=== PATIENT | female | born 2000 | race Caucasian/White ===

== ENCOUNTER 2024-09-16 18:49 | Emergency (ER) | payer OTHER, SELFPAY ==
--- NOTE | ~2024-09-16 | XR_ITS ---
CLINICAL HISTORY: SOB 1 view chest x-ray Comparison: None Findings: No consolidation or effusion. Normal size heart. No acute fracture. IMPRESSION: 1. No acute findings. This document has been electronically signed by: Dash Lozano MD on 09/16/2024 19:39:07
[2024-09-16 18:59] VITALS: BP 127/92; PULSE 73; RESP 24; TEMP 35.7; O2SAT 95; BMI 27.4
--- NOTE | 2024-09-16 18:59 | ECG_ITS ---
Test Reason : SOB Blood Pressure : */* mmHG Vent. Rate : 69 BPM Atrial Rate : * BPM P-R Int : * ms QRS Dur : 80 ms QT Int : 380 ms P-R-T Axes : * 55 66 degrees QTcB Int : 407 ms Atrial fibrillation Abnormal ECG No previous ECGs available Referred By: Jake Contreras Electronically Signed By: Shaq Panda
--- NOTE | 2024-09-16 19:02 | ED.GENADULT ---
HPI - General Adult General Chief complaint: Dyspnea Stated complaint: severe sob/just started to medication Time Seen by Provider: 09/16/24 22:28 History of Present Illness HPI narrative: Patient seen by and note written by him Related Data Previous Rx's ?Medication ?Instructions ?Recorded albuterol sulfate 90 mcg/actuation 1 inh inhalation Q4-6H PRN 09/16/24 breath activated powder inhaler shortness of breath #1 ea Allergies Allergy/AdvReac Type Severity Reaction Status Date / Time azithromycin Allergy Rash Verified 09/16/24 19:01 Penicillins [PCN] Allergy Rash Verified 09/16/24 19:01 [facility] Social History Social History Advance Directives: No Advance Directives Information Provided: No Do you have a plan to hurt others: No Plan Physical Exam ED Vital Signs: Vital Signs - 24 hr 09/16/24 18:59 09/16/24 19:27 09/16/24 23:07 Temperature 96.2 F L 97.8 F Pulse Rate 73 84 60 Respiratory Rate 24 H 20 16 Blood Pressure 127/92 H 115/64 Pulse Oximetry 95 99 Oxygen Delivery Method Room Air Room Air BMI result Body Mass Index 27.4 Course Course Course Narrative: RME: 24 yold female with pmh of anxiety, asthma and POTS presents to the ED for shortness of breath, wheezing and feelin anxious. Patient states symptoms started 20 minutes ago thinks maybe due to anxiety. Patient is unsure if it is due due new propanolol she started last night for POTS. Patient states she only took 1 propranolol last night and had no symptoms. Patient denies ever having any lip swelling, tongue swelling, drooling, rash, or sensation of throat closing. Physical exam negative for any rash, lip swelling, tongue swelling, uvula swelling. Lungs positive for profuse wheezing. Patient is brought in for ED bronchodilator treatment. Labs EKG ordered. Benadryl prednisone ordered. Medications Administered Discontinued Medications Generic Name Dose Route Start Last Admin Trade Name Freq PRN Reason Stop Dose Admin Albuterol Sulfate 2.5 mg 09/16/24 19:22 09/16/24 19:29 Albuterol Sulfate (0.083%) 2.5 Mg/3 Ml Vial.Neb INHALE 09/16/24 19:23 2.5 mg ONCE ONE Administration Diphenhydramine HCl 50 mg 09/16/24 19:01 09/16/24 19:35 Diphenhydramine Hcl 25 Mg Capsule PO 09/16/24 19:02 50 mg ONCE ONE Administration Prednisone 40 mg 09/16/24 19:02 09/16/24 19:36 Prednisone 20 Mg Tablet PO 09/16/24 19:03 40 mg ONCE ONE Administration Medical Decision Making Medical Decision Making [facility] Narrative: Pleasant 24-year-old female with recent diagnosis of POTS syndrome. She has been on propranolol just started taking this and had what appears to be significant anxiety attack after taking. Not bradycardic or ill or toxic previous evaluating provider felt there was wheezing. Mild associated chest tightness with the episode that has completely resolved. No PE history no personal cardiac history. Patient looks well and reassuring on examination Lab Data [facility] Lab Attestation statement: I reviewed the patient's lab results. 09/16/24 19:12 09/16/24 19:12 Labs: Lab Results 09/16/24 Range/Units 19:12 WBC 7.3 (4.8-10.8) X10*3/uL RBC 4.67 (4.20-5.50) X10*6/uL Hgb 12.8 (12.0-16.0) g/dl Hct 38.3 (37.0-47.0) % MCV 82.0 (80.0-98.0) fL MCH 27.4 (27.0-33.0) pg MCHC 33.4 (31.0-35.0) g/dl RDW 14.1 (11.0-16.0) % Plt Count 266 (160-400) X10*3/uL MPV 9.2 L (9.4-12.3) fL Immature Gran % (Auto) 0.1 (0.0-0.4) % Neut % (Auto) 55.4 (45-73) % Lymph % (Auto) 32.9 (20-40) % [place] % (Auto) 6.0 (2-11) % Eos % (Auto) 4.6 H (0-4) % Baso % (Auto) 1.0 (0-2) % Lymph # (Auto) 2.4 (1.2-4.9) X10*3/uL [place] # (Auto) 0.4 (0.1-1.2) X10*3/uL Eos # (Auto) 0.3 (0.0-0.4) X10*3/uL Baso # (Auto) 0.1 (0.0-0.2) X10*3/uL Abs Immat Gran (auto) 0.01 (0.00-0.03) X10*3/uL Absolute Neuts (auto) 4.1 (2.0-8.3) x10*3/uL Absolute Nucleated RBC 0.000 (0.0-0.012) X10*3/uL Nucleated RBC % (auto) 0.0 (0.0-0.2) /100WBC Sodium 140 (135-145) mmol/L Potassium 4.3 (3.3-5.1) mmol/L Chloride 108 (96-108) mmol/L Carbon Dioxide 24 (22-29) mmol/L Anion Gap 12 (12-20) BUN 11 (9-16) mg/dL Creatinine 0.79 (0.5-1.4) mg/dL Estim Creat Clear Calc 122.0 Estimated GFR > 60 Random Glucose 105 (60-115) mg/dL Calcium 9.2 (8.4-10.2) mg/dL Total Bilirubin 0.3 (0.0-1.0) mg/dL AST 18 (5-31) U/L ALT 11 (0-31) U/L Alkaline Phosphatase 66 (39-117) U/L Troponin I High Sens < 2.7 (<3.5-17.0) ng/L B-Natriuretic Peptide 16 (<100) pg/mL Total Protein 7.1 (6.5-8.0) g/dL Albumin 4.3 (3.5-5.0) g/dL TSH 0.93 (0.32-4.0) uIU/mL Free T4 1.16 (0.71-1.85) ng/dL Independent Interpretation I performed an independent interpretation of an: EKG (Sinus rhythm, no acute ischemic changes, baseline? Tremor artifact, normal intervals and axis QTC 407) Discharge Plan Discharge Clinical Impression: Asthma with exacerbation Patient Disposition: Home, Self-Care Instructions: Wheezing (ED) Additional Instructions: DISCHARGE DIAGNOSES: Transient wheezing resolved after albuterol HISTORY OF PRESENTATION: ?Shortness of breath difficulty taking deep breath, wheeze subjectively recent propranolol use EMERGENCY DEPARTMENT COURSE,TESTS, TREATMENTS: While in the ED today you received oral steroid medication, albuterol and nebulized treatment and Benadryl with improvement DISCHARGE MEDICATIONS: ?We have made no changes your other medications but we have prescribed you an albuterol inhaler FOLLOW-UP: ?Call your primary or general physician soon as possible to discuss your symptoms, your ED visit and to discuss follow up plans Call your primary doctor or OBGYN follow up as soon as possible INSTRUCTIONS ?& RETURN PRECAUTIONS: If any symptoms change first call your primary physician, if it is after-hours your primary doctors office should have a provider operations project manager you can speak with. If the symptoms are severe or very concerning to you then call 911 or return to the ED. Corey Piper MD Emergency Physician [facility] Prescriptions: New albuterol sulfate 90 mcg/actuation aerosol powdr breath activated 1 inh inhalation Q4-6H PRN (Reason: shortness of breath) Qty: 1 0RF Interventions: ED Discharge Assessment Last Done: 09/16/24 23:07 Discharge Date/Time: 09/16/24 23:07 Print Language: Citizen Of [place]
[2024-09-16 19:19] LABS: MANUAL DIFF FLAG NO
[2024-09-16 19:27] VITALS: PULSE 84; RESP 20; O2SAT 99
[2024-09-16] MEDS: Albuterol Sulfate (0.083%) 2.5 MG/3 ML VIAL.NEB INHALE (19:29)
[2024-09-16 19:33] LABS: Basophils Absolute Auto 0.1 X10*3/uL (0.0-0.2); Eosinophils Absolute Auto 0.3 X10*3/uL (0.0-0.4); Eosinophils Percent Auto 4.6 % (0-4); Hematocrit 38.3 % (37.0-47.0); Hemoglobin 12.8 g/dl (12.0-16.0); Imm Gran Abs Auto 0.01 X10*3/uL (0.00-0.03); Imm Gran Pct Auto 0.1 % (0.0-0.4); Lymphocytes Absolute Auto 2.4 X10*3/uL (1.2-4.9); Lymphocytes Percent Auto 32.9 % (20-40); Mean Corpuscular HGB Conc 33.4 g/dl (31.0-35.0); Mean Corpuscular Hemoglobin 27.4 pg (27.0-33.0); Mean Platelet Volume 9.2 fL (9.4-12.3); Monocytes Absolute Auto 0.4 X10*3/uL (0.1-1.2); Neutrophils Absolute Auto 4.1 x10*3/uL (2.0-8.3); Neutrophils Percent Auto 55.4 % (45-73); Platelet Count 266 X10*3/uL (160-400); Red Blood Count 4.67 X10*6/uL (4.20-5.50); Red Cell Distribution Width 14.1 % (11.0-16.0); White Blood Count 7.3 X10*3/uL (4.8-10.8)
[2024-09-16] MEDS: diphenhydrAMINE HCL 25 MG CAPSULE 50 MG PO (19:35)
[2024-09-16] MEDS: predniSONE 20 MG TABLET 40 MG PO (19:36)
--- NOTE | 2024-09-16 19:39 | PC.NURSE ---
pt received breathing tx by RT, verbalizes feeling better. medicated per jul. LS improved. awaiting eval by ed provider.
[2024-09-16 19:47] LABS: B Type Natriuretic Peptide 16 pg/mL (<100)
[2024-09-16 19:50] LABS: Alanine Aminotransferase 11 U/L (0-31); Albumin Level 4.3 g/dL (3.5-5.0); Alkaline Phosphatase 66 U/L (39-117); Anion Gap 12 (12-20); Aspartate Amino Transferase 18 U/L (5-31); Bilirubin Total 0.3 mg/dL (0.0-1.0); Blood Urea Nitrogen 11 mg/dL (9-16); Calcium 9.2 mg/dL (8.4-10.2); Carbon Dioxide 24 mmol/L (22-29); Chloride 108 mmol/L (96-108); Estimated Glomerular Filt Rate > 60; Glucose Random 105 mg/dL (60-115); Potassium 4.3 mmol/L (3.3-5.1); Sodium 140 mmol/L (135-145); Total Protein 7.1 g/dL (6.5-8.0)
[2024-09-16 19:51] LABS: Troponin-I High Sensitivity < 2.7 ng/L (<3.5-17.0)
[2024-09-16 20:04] LABS: Free T4 (Free Thyroxine) 1.16 ng/dL (0.71-1.85); Thyroid Stimulating Hormone 0.93 uIU/mL (0.32-4.0)
[2024-09-16 23:07] VITALS: BP 115/64; PULSE 60; RESP 16; TEMP 36.6; O2SAT 99
== END 2024-09-16 23:07 | disposition home or self-care (01) ==
PROVIDERS: Physician Assistant; Emergency Provider Emergency Medicine
DX: J45.901 Unspecified asthma with (acute) exacerbation (principal); R06.02 Shortness of breath; F41.9 Anxiety disorder, unspecified; Z79.899 Other long term (current) drug therapy
CPT/HCPCS: 36415; 71045; 80053; 83880; 84439; 84443; 84484; 85025; 93005; 94640; 99284

== ENCOUNTER → 2024-09-16 18:59 | Outpatient (BNV) | payer OTHER, SELFPAY | PROVIDERS: Visit Provider Specialist | DX: R06.02 Shortness of breath (principal) | CPT/HCPCS: 71045 ==

== ENCOUNTER → 2024-09-16 18:59 | Outpatient (BNV) | payer OTHER, SELFPAY | PROVIDERS: Emergency Provider Emergency Medicine; Visit Provider Internal Medicine Cardiovascular Disease | DX: I48.91 Unspecified atrial fibrillation (principal) | CPT/HCPCS: 93010 ==